=== PATIENT | female | born 1960 | race Caucasian/White ===

== ENCOUNTER 2017-03-21 08:05 | Emergency (ER) | payer OTHER ==
[2017-03-21 08:21] VITALS: RESP 16; TEMP 98.5
--- NOTE | 2017-03-21 08:55 | ED PDOC ---
Arrival/HPI - General Historian: Patient - History of Present Illness Time/Duration: < month Symptom Onset: Gradual Symptom Course: Unchanged Quality: Unable to Describe Severity Level: 5 Activities at Onset: Rest Context: Work - General Chief Complaint: Back Pain Time Seen by Provider: 03/21/17 08:32 - History of Present Illness Narrative History of Present Illness (Text): 03/21/17 08:52 This is a 56 yr. old female with no past medical history who comes to [facility] complaining of back pain for two weeks. The patient reports the pain at the right lower lumbar area with no radiation. The patient reports daily movement at her job agitates the back pain. The patient does report laying on her right side and taking Aleve relieve symptoms. The patient denies any fevers, chills, nausea, vomiting, chest pain, shortness of breath, changes in urination, constipation, diarrhea, headaches, weakness or any other complaints. (Demetrio Mei) Past Medical History - Provider Review Nursing Documentation Reviewed: Yes - Travel History Have you recently traveled outside [place] w/in the past 3 mons?: No - Psychiatric Hx Substance Use: No Family/Social History - Physician Review Nursing Documentation Reviewed: Yes Family/Social History: No Known Family HX Smoking Status: Never Smoked Hx Alcohol Use: No Hx Substance Use: No Allergies/Home Meds Allergies/Adverse Reactions: Allergies No Known Allergies Allergy (Verified 03/21/17 08:21) Review of Systems - Physician Review All systems were reviewed & negative as marked: Yes - Review of Systems Constitutional: Normal. absent: Fatigue, Fevers, Night Sweats Eyes: Normal, Vision Changes. absent: Eye Pain ENT: Normal. absent: Sore Throat, Rhinorrhea, Sinus Congestion Respiratory: Normal. absent: SOB, Cough, Sputum, Wheezing Cardiovascular: Normal. absent: Chest Pain, Palpitations, Syncope Gastrointestinal: Normal, Other (denies fecal incontinence). absent: Abdominal Pain, Constipation, Diarrhea, Nausea, Vomiting Genitourinary Female: Normal, Other (denies urinary incontinence/ retention). absent: Frequency, Hematuria Musculoskeletal: Back Pain (right lower lumbar pain for two weeks) Skin: Normal. absent: Rash, Skin Lesions Neurological: Normal, Other (denies any saddle anesthesia, denies any sharp pain radiating down right leg.). absent: Headache, Dizziness, Speech Changes, Facial Droop Endocrine: Normal. absent: Polyuria, Polydipsia Hemo/Lymphatic: Normal Psychiatric: Normal Physical Exam Vital Signs Reviewed: Yes Temperature: Afebrile Blood Pressure: Hypertensive Pulse: Regular Respiratory Rate: Normal Appearance: Positive for: Well-Appearing, Non-Toxic, Comfortable Pain Distress: None Mental Status: Positive for: Alert and Oriented X 3 - Systems Exam Head: Present: Atraumatic, Normocephalic Pupils: Present: PERRL. No: Sluggish Extroacular Muscles: Present: EOMI. No: Gaze Palsy Conjunctiva: Present: Normal. No: Injected Mouth: Present: Moist Mucous Membranes, Normal Tounge. No: Drooling Neck: Present: Normal Range of Motion. No: JVD, Lymphadenopathy Respiratory/Chest: Present: Clear to Auscultation, Good Air Exchange. No: Respiratory Distress, Accessory Muscle Use, Wheezes Cardiovascular: Present: Regular Rate and Rhythm, Normal S1, S2. No: Murmurs, Tachycardic, Bradycardic Abdomen: Present: Normal Bowel Sounds. No: Tenderness, Distention, Rebound, Guarding Back: Present: Other (Tenderness at the right lower lumbar area upon palpation) . No: CVA Tenderness, Paraspinal Tenderness, Pain with Leg Raise Upper Extremity: Present: Normal Inspection. No: Edema Lower Extremity: Present: Normal Inspection, Other (Patient has negative SLR bilaterally. ). No: Edema Neurological: Present: CN II-XII Intact, Speech Normal Skin: Present: Dry, Normal Color. No: Warm, Rashes Psychiatric: Present: Alert, Oriented x 3, Normal Insight Vital Signs Temp Pulse Resp BP Pulse Ox 03/21/17 08:21 98.5 F 75 16 143/91 H 98 Medical Decision Making ED Course and Treatment: 03/21/17 09:06 Patient seen and examined with resident. Came up with treatment and disposition plan with resident. 03/21/17 09:44 Patient presents with right lower lumbar back pain. Pt states pain feels like a muscle spasm, worst with movement and palpation. No ripping/tearing sensation , pt is not diffuse and not traveling or changing location. Relieved with positioning. No lower extremity pain/weakness/paresthesias. Pt denies urinary incontinence or retention. No bowel incontinence, constipation, or diarrhea. No hx of IVDA, no f/c, no neck pain. No other complaints. Patient appears age appropriate in no distress, speaking full sentences without difficulty Increased hypertonicity appreciated in the lumbar region, pain quality reproduced with palpation. No midline tenderness. FROM of pt's cervical, thoracic, lumbar, and sacral regions appreciated, active/passive without any difficulty. Lower extremities with full neurological and vascular intact. Steady gait. Toradol ordered, but patient refused. Pt states is not driving home. Based on hx and physical, no suspicion for renal involvement, cord impingement or epidural/spinal abscess Pt verbalized understands to return to the ER right away for new or worsening symptoms or for inability to f/u with PMD or specialist as instructed. Patient verbalized full agreement with and understanding of discharge instructions. States that she agrees with the plan and disposition. Verbalized and repeated discharge instructions and plan. I have given the patient opportunity to ask any additional questions. (Seymour Misrty) 03/21/17 08:59 This is a 56 yr old female with no past medical history who comes into [facility] complaining of back pain for two weeks. The patient was given IM Toradol for pain. Patient will be re-evaluated once pain medicine given. 03/21/17 09:12 Patient decided against getting Toradol shot. Patient preferred to get the Motrin, Tylenol and Lidoderm patch at home. 03/21/17 09:48 (Demetrio Mei) Disposition/Present on Arrival - Present on Arrival Any Indicators Present on Arrival: No History of DVT/PE: No History of Uncontrolled Diabetes: No Urinary Catheter: No History of Decub. Ulcer: No History Surgical Site Infection Following: None - Disposition Have Diagnosis and Disposition been Completed?: Yes Disposition Time: 09:38 Patient Plan: Discharge - Disposition Diagnosis: Lumbar pain determined by palpation Disposition: HOME/ ROUTINE Patient Problems: Current Active Problems Problem Status Onset Lumbar pain Acute Condition: GOOD Additional Instructions: Patient instructed to F/U with PMD within one week. Patient instructed to return to [facility] for any new symptoms or current ones worsen. Prescriptions: Acetaminophen [Pain Reliever] 1 gm PO DAILY #3 tablet Ibuprofen [Motrin] 600 mg PO DAILY #3 tab Lidocaine 5% [Lidoderm] 1 patch TOP ONCE #1 patch Referrals: PCP,NO [Primary Care Provider] - Follow up with primary Forms: [employer] ([place]), WORK NOTE
[2017-03-21 09:54] VITALS: BP 133/77; PULSE 72; O2SAT 99
== END 2017-03-21 10:23 | disposition home or self-care (01) ==
LOC: ED 08:05
DX: M54.5 Low back pain (principal)